=== PATIENT | male | born 1970 | race Hispanic/Latino ===

== ENCOUNTER 2018-10-03 16:18 | Emergency (ER) | payer SELFPAY ==
[2018-10-03] MEDS ORDERED: Ondansetron ODT 4 MG TAB ONE (16:52)
[2018-10-03] MEDS ORDERED: Ketorolac Tromethamine 30 MG/ML VIAL ONE (16:52)
[2018-10-03 17:12] LABS: Clarity Hazy (Clear); Leukocyte Negative (Negative); Nitrite Negative (Negative)
[2018-10-03 17:13] LABS: Bacteria/HPF Rare-Few HPF (None Seen); Bilirubin Negative (Negative); Blood, Urine Trace (Negative); Glucose, Urine (Dipstick) Negative (Negative); Protein, Urine (Dipstick) Negative (Neg-Trace); RBC/HPF 0-3 HPF (0-3); Squamous Epithelial 0-3 HPF (0-3); Urobilinogen 0.2 mg/dL (Less than 2); WBC/HPF 0-3 HPF (0-3)
[2018-10-03 17:15] LABS: Amphetamine Not Detected (NotDetected); Barbiturates Screen Not Detected (NotDetected); Benzodiazepine Screen Not Detected (NotDetected); Cocaine Metabolite Screen Not Detected (NotDetected); Medtox Control Line Valid? VALID (VALID); Methadone Not Detected (NotDetected); Methamphetamine Not Detected (NotDetected); Opiate Screen Detected (NotDetected); Oxycodone Screen Not Detected (NotDetected); Phencyclidine (PCP) Not Detected (NotDetected); THC/Cannabinoid Screen Not Detected (NotDetected); Tricyclic Screen Not Detected (NotDetected)
--- NOTE | 2018-10-03 17:18 | RAD ---
Exam: Lumbar spine 2 views HISTORY: Pain FINDINGS: 5 lumbar type vertebra. Vertebral body height is maintained. No fracture. Moderate degenera tive change at L5-S1. Straightening of normal lumbar lordosis is presumed to be positional. IMPRESSION: Degenerative changes of the lumbosacral junction. Further evaluation with nonemergent MRI if clinically warranted.
[2018-10-03] MEDS ORDERED: Orphenadrine Citrate 60 MG/2 ML VIAL ONE (17:53)
== END 2018-10-03 18:07 | disposition home or self-care (01) ==
LOC: MADERS 16:18
DX: M54.42 Lumbago with sciatica, left side (principal); M62.830 Muscle spasm of back; F17.210 Nicotine dependence, cigarettes, uncomplicated
CPT/HCPCS: 72100; 80306; 81003; 81015; 96372; J1885; J2360; Q0162

== ENCOUNTER 2019-02-21 10:10 | Emergency (ER) | payer SELFPAY ==
[2019-02-21] MEDS ORDERED: Tetracaine 0.5% OPHTH SOLN/PF 4 ML BOT ONE ×2 (10:49→11:02)
[2019-02-21] MEDS ORDERED: Fluorescein Opthalmic Strip ONE (10:57)
[2019-02-21] MEDS ORDERED: Tobramycin Sulfate 0.3% Ophth Susp 5 ml Bottle ONE (11:34)
[2019-02-21] MEDS ORDERED: traMADol HCl 50 MG TAB ONE (11:40)
[2019-02-21] MEDS ORDERED: Ibuprofen 800 MG TAB ONE (11:41)
== END 2019-02-21 11:52 | disposition home or self-care (01) ==
LOC: MADERS 10:10
DX: T15.01XA Foreign body in cornea, right eye, initial encounter (principal); F17.210 Nicotine dependence, cigarettes, uncomplicated
CPT/HCPCS: 65222